=== PATIENT | male | born 1935 | race Caucasian/White ===

== ENCOUNTER 2016-09-15 12:39 | Observation (INO) ==
[2016-09-15] MEDS ORDERED: CARDIZEM IV ONE (13:19)
[2016-09-15] MEDS ORDERED: NS 1,000 ML ONE (13:29)
--- NOTE | 2016-09-15 13:41 | Diag Imaging Result Doc PS360 ---
EXAM: CHEST-PORTABLE HISTORY: cp TECHNIQUE: AP portable upright at 1335 COMMENT: The appearance of the chest has not changed significantly since 04/29/2016. IMPRESSION: No evidence of acute disease. Electronically signed by Yoshi Galvez 09/15/2016 1:39 PM
--- NOTE | 2016-09-15 14:13 | EKG Report ---
Test Performed on : 09/15/2016 12:59:27 PM Test Reason : Chest Pain Blood Pressure : / mmHG Vent. Rate : 159 BPM Atrial Rate : 125 BPM P-R Int : 000 ms QRS Dur : 078 ms QT Int : 270 ms P-R-T Axes : 000 032 068 degrees QTc Int : 439 ms Atrial fibrillation. with rapid ventricular response. with premature ventricular or aberrantly condu cted complexes. ST \T\ T wave abnormality, consider inferolateral ischemia Abnormal ECG When compared with ECG of 06-JUL-2015 09:55, Atrial fibrillation. has replaced Sinus rhythm. Vent. rate has increased BY 102 BPM T wave inversion now evident in Inferior leads Inverted T waves have replaced nonspecific T wave abnormality in Lateral leads Unconfirmed Result
[2016-09-15 14:14] LABS: MANUAL DIFF NEEDED? NO
--- NOTE | 2016-09-15 14:16 | EKG Report ---
Test Performed on : 09/15/2016 1:28:32 PM Test Reason : rhythm change Blood Pressure : / mmHG Vent. Rate : 086 BPM Atrial Rate : 086 BPM P-R Int : 154 ms QRS Dur : 080 ms QT Int : 364 ms P-R-T Axes : 047 027 070 degrees QTc Int : 435 ms Normal sinus rhythm. Nonspecific ST and T wave abnormality Abnormal ECG When compared with ECG of 15-SEP-2016 12:59, (Unconfirmed) Sinus rhythm. has replaced Atrial fibrillation. Vent. rate has decreased BY 73 BPM T wave inversion no longer evident in Inferior leads Unconfirmed Result
[2016-09-15 14:20] LABS: BASO% 0.1 % (0.0-0.8); EOS# 0.02 X1000 (0.0-0.7); EOS% 0.2 % (0.0-10.0); HEMOGLOBIN 14.5 g/dL (14.0-18.0); LYMPH# 0.81 X1000 (1.2-3.4); LYMPH% 9.8 % (20.5-51.1); MCHC 34.5 g/dL (33-37); MCV 89.7 FL (81-99); MONO# 0.58 X1000 (0.11-0.59); MPV 8.6 FL (7.4-10.4); NEUT% 82.9 % (42.2-75.2); PLT 213 X1000 (130-400); RBC 4.68 XMIL (4.7-6.1)
[2016-09-15 14:31] LABS: INR 1.11; PROTIME 11.7 Seconds (9.2-11.7); PTT 28.1 Seconds (22.0-36.0)
[2016-09-15 14:50] LABS: AGAP 10; ALBUMIN 3.6 g/dL (3.5-5.0); ALKALINE PHOSPHATASE 65 U/L (32-122); BUN 8 mg/dL (8-22); CALCIUM 8.9 mg/dL (8.8-10.2); CHLORIDE 90 mmol/L (98-107); CK PROFILE 121 U/L (24-204); COSMO 261; GOT 15 U/L (10-34); GPT 13 U/L (10-44); MAGNESIUM 1.6 mg/dL (1.5-2.7); POTASSIUM 3.5 mmol/L (3.5-5.1); SODIUM 131 mmol/L (136-145); TCO2 31 mmol/L (25-35); TOTAL BILIRUBIN 0.43 mg/dL (0.20-1.00); TOTAL PROTEIN 6.3 g/dL (6.3-8.3)
[2016-09-15] MEDS ORDERED: NS 1,000 ML IV ONE (14:50)
--- NOTE | 2016-09-15 15:46 | PROVIDER DOCUMENTATION ---
This chart was entered by Jean Paul Call Scribe, acting as scribe for Mayra Loya MD. HPI-Chest Pain - General Stated Complaint: CHEST PAIN Time Seen by Provider: 09/15/16 13:10 Source: patient Allergies/Adverse Reactions: Patient Allergies Allergy/AdvReac Type Severity Reaction Status Date / Time codeine Allergy NAUSEA/VOMI Verified 09/15/16 13:41 TING Sulfa (Sulfonamide Allergy RASH Verified 07/06/15 07:30 Antibiotics) Home Medications: Home Medication List Medication Instructions Recorded Confirmed Last Taken Type Aspirin 81 mg PO DAILY 08/08/12 07/06/15 07/06/15 06:30 History Clopidogrel [Plavix] 75 mg PO DAILY 08/08/12 07/06/15 07/05/15 18:00 History Indapamide 2.5 mg PO BID 08/08/12 07/06/15 07/06/15 06:30 History Levothyroxine [Synthroid] 75 microgm PO DAILY 08/08/12 07/06/15 07/06/15 06:30 History Tamsulosin [Flomax] 0.4 mg PO QHS 08/08/12 07/06/15 07/05/15 18:00 History Cyanocobalamin (Vitamin B-12) 5,000 mcg SL DAILY 07/06/15 07/06/15 07/06/15 06: 30 History [Vitamin B-12] Finasteride 5 mg PO QPM 07/06/15 07/06/15 07/05/15 18:00 History Potassium Chloride E.r. [Klor-Con] 20 meq PO DAILY 07/06/15 07/06/15 07/06/15 06 :30 History - History of Present Illness-CP Nature of Presenting Problem: Patient is 81 y/o M that presents with substernal chest pain and palpitations. No shortness of breath, n/v, or dizziness. He was found to have a heartrate at the scene in the 180s and irregular. History of A-fib in which has been controlled for years Location: reports: substernal Chest Pain Radiation: reports: no radiation Quality of Pain: reports: tightness Severity in ED: moderate Onset/Duration: abrupt, this morning Timing: improving Context/Activities at Onset: reports: none Modifying Factors: improves with: nothing Associated Symptoms: denies: abdominal pain, back pain, fever/chills, nausea, shortness of breath, vomiting Nitro Today/Relief: 0.4 mg x 1, provided at home, mild relief Aspirin Treatment Today: 325 mg x 1, provided at home Prior Chest Pain/Cardiac Workup: reports: heart attack Similar Symptoms Previously?: Yes (years ago) Recently Seen Here or By Another Healthcare Provider: No Review of Systems - Adult - REVIEW OF SYSTEMS - ADULT Constitutional: denies: chills, fever Eyes: reports: no symptoms reported Ears, Nose, Mouth & Throat: reports: no symptoms reported Cardiovascular: reports: chest pain, palpitations. denies: orthopnea, syncope Respiratory: denies: cough, shortness of breath, wheezing Gastrointestinal: denies: abdominal pain, nausea, vomiting Genitourinary: reports: no symptoms reported Musculoskeletal: reports: no symptoms reported Integumentary: reports: no symptoms reported Neurological: reports: no symptoms reported Psychiatric: reports: no symptoms reported Endocrine: reports: no symptoms reported Hematologic/Lymphatic: reports: no symptoms reported Allergic/Immunologic: reports: no symptoms reported All Other Systems: Reviewed and Negative Past History - Adult - PAST MEDICAL HISTORY-ADULT Review of Records: reports: Old Records Reviewed, Nursing Assessment Review, Medications Reviewed Cardiovascular: reports: A-Fib, CAD, HTN, hyperlipidemia, [place] Gastrointestinal: reports: GERD Genitourinary: reports: kidney disease, other (bph) Endocrine/Immune: reports: thyroid disorder (hypo) Other Conditions: reports: other cancer (skin) - PRIOR SURGERIES/PROCEDURES Surgical/Procedure History: reports: cardiac stent, hernia repair - IMMUNIZATION STATUS Childhood Immunizations: See Nurse Assessment Flu Vaccine: See Nurse Assessment - FAMILY HISTORY Family History: reviewed, not pertinent - SOCIAL HISTORY Smoking: quit greater than 1 year, cigarettes Alcohol Use Frequency: every day Number of drinks per typical drinking period:: 1 drink Living Situation: family Physical Exam-General - PHYSICAL EXAM-ADULT Initial Vital Signs Reviewed: Yes - CONSTITUTIONAL General Appearance: alert, mild distress - EYES Eyes: PERRL/EOMI, pink conjunctivae - HEAD, EARS, NOSE, MOUTH & THROAT HENMT: normocephalic/atraumatic, moist mucous membranes, normal ENT inspection - NECK Neck: full range of motion, normal inspection - RESPIRATORY Respiratory: lungs clear, normal breath sounds, no respiratory distress, no accessory muscle use - CARDIOVASCULAR Cardiovascular: no edema, irregularly irregular (150s) - GASTROINTESTINAL (ABDOMEN) Abdominal Exam: normal bowel sounds, non tender, soft - MUSCULOSKELETAL Extremity: normal range of motion, normal inspection, no pedal edema - SKIN Integumentary: normal color, warm/dry - NEUROLOGIC Neurologic: club room attendant II-XII nml as tested, no motor/sensory deficits - PSYCHIATRIC Psych/Mental Status: normal mood/affect, normal thought content, normal thought process, oriented x 3 Progress - PLAN OF CARE/RESULTS Progress/Plan/Lab Results: Vital Signs - 8 hr 09/15/16 13:17 09/15/16 13:37 09/15/16 14:10 Temperature 98.2 F Pulse Rate 157 H 86 80 Respiratory Rate 18 17 16 Blood Pressure 112/66 110/63 123/64 O2 Sat by Pulse Oximetry 98 95 99 Laboratory Results - last 24 hr 09/15/16 09/15/16 09/15/16 13:55 13:55 13:55 WBC 8.29 RBC 4.68 L Hgb 14.5 Hct 42.0 MCV 89.7 MCH 31.0 MCHC 34.5 RDW Std Deviation 13.6 Plt Count 213 MPV 8.6 Neut % (Auto) 82.9 H Lymph % (Auto) 9.8 L [place] % (Auto) 7.0 Eos % (Auto) 0.2 Baso % (Auto) 0.1 Neut # (Auto) 6.87 H Lymph # (Auto) 0.81 L [place] # (Auto) 0.58 Eos # (Auto) 0.02 Baso # (Auto) 0.01 PT INR PTT (Actin FS) D-Dimer < 0.10 Sodium 131 L Potassium 3.5 Chloride 90 L Carbon Dioxide 31 Anion Gap 10 BUN 8 Creatinine 1.0 Estimated GFR/1.73 m2 > 60 BUN/Creatinine Ratio 8 Glucose 105 H Calculated Osmolality 261 Calcium 8.9 Magnesium 1.6 Total Bilirubin 0.43 AST 15 ALT 13 Alkaline Phosphatase 65 Creatine Kinase 121 Troponin T [id number] Pept Total Protein 6.3 Albumin 3.6 Globulin 2.7 Albumin/Globulin Ratio 1.3 09/15/16 09/15/16 09/15/16 13:55 13:55 13:55 WBC RBC Hgb Hct MCV MCH MCHC RDW Std Deviation Plt Count MPV Neut % (Auto) Lymph % (Auto) [place] % (Auto) Eos % (Auto) Baso % (Auto) Neut # (Auto) Lymph # (Auto) [place] # (Auto) Eos # (Auto) Baso # (Auto) PT 11.7 INR 1.11 PTT (Actin FS) 28.1 D-Dimer Sodium Potassium Chloride Carbon Dioxide Anion Gap BUN Creatinine Estimated GFR/1.73 m2 BUN/Creatinine Ratio Glucose Calculated Osmolality Calcium Magnesium Total Bilirubin AST ALT Alkaline Phosphatase Creatine Kinase Troponin T < 0.010 [id number] Pept 1309 H Total Protein Albumin Globulin Albumin/Globulin Ratio Orders Category Date Time Status Cardiac Monitoring DIRECTED Care 09/15/16 13:19 Active Saline Loc NOW Care 09/15/16 13:19 Active CHEST-PORTABLE [RAD] Stat Exams 09/15/16 13:19 Completed CBC WITH ELECTRONIC DIFF [HEME] Stat Lab 09/15/16 13:55 Completed CK PROFILE [SP CHEM] Stat Lab 09/15/16 13:55 Completed COMPREHENSIVE METABOLIC PANEL [CHEM] Stat Lab 09/15/16 13:55 Completed D-DIMER [CHEM] Stat Lab 09/15/16 13:55 Completed MAGNESIUM [CHEM] Stat Lab 09/15/16 13:55 Completed PRO B-NATRIURETIC PEPTIDE Stat Lab 09/15/16 13:55 Completed PROTIME WITH INR [COAG] Stat Lab 09/15/16 13:55 Completed PTT [COAG] Stat Lab 09/15/16 13:55 Completed TROPONIN T Stat Lab 09/15/16 13:55 Completed 0.9% Sodium Chloride Inj [Ns] 1,000 ml Med 09/15/16 13:29 Discontinued .ROUTE As Directed 0.9% Sodium Chloride Inj [Ns] 1,000 ml Med 09/15/16 14:50 Active IV 999 mls/hr Diltiazem [Cardizem] Med 09/15/16 13:19 Discontinued 10 mg IV NOW ONE EKG [EKG] Stat Ther 09/15/16 13:19 Draft EKG [EKG] Stat Ther 09/15/16 13:32 Draft patient converted to NSR on his own, Cardizem wasn't given Result Diagrams: 09/15/16 13:55 09/15/16 13:55 - EKG 1 Time of EKG reading by physician:: 12:59 EKG Read and Signed by:: Mayra Loya EKG Interpretation (*Must complete 3 of following elements*): Abnormal Rate: 159 Rhythm: a-fib with RVR QRS: normal ST Wave: non-specific ST changes 2 Time of EKG reading by physician:: 13:28 EKG Read and Signed by:: Mayra Loya EKG Interpretation (*Must complete 3 of following elements*): Abnormal Rate: 86 Rhythm: NSR [place]: normal QRS: normal FL Interval: normal ST Wave: non-specific ST changes - XRAY 1 XRAY Study: Chest Impression: Normal XRAY Interpretation: nad - CONSULTS/PCP/HOSPITALIST Notification #1 *Consult/PCP/Hospitalist*: Time Discussed: 15:21 Consult Disposition: Will see in ED, Admit Departure - Departure Date of Disposition Decision: 09/15/16 Time of Disposition Decision: 15:08 DIAGNOSIS: Paroxysmal a-fib, Chest pain in adult Disposition: ADMITTED INPATIENT 09 Certified Medical Emergency: Emergent Condition: Stable - Critical Care Note This patient required my direct & personal management of CC.: Yes Total Time (mins): 40 Critical Care Statement: This patient required my direct personal management to treat or rule out processes, the absence of which, could potentiallly result in sudden, clinically significant life or limb threatening deterioration. This chart was documented by the indicated scribe, (Jean Paul Call, Scribe) and accurately reflects the services I performed and decisions made by me, Mayra Loya MD, as attested by the provider's signature.
[2016-09-15] MEDS ORDERED: NS 1,000 ML IV SCH (16:56)
--- NOTE | 2016-09-15 18:08 | HISTORY AND PHYSICAL ---
SENIOR ORACLE ADF DEVELOPER: Dr. Balderas. CHIEF COMPLAINT: Chest pain. HISTORY OF PRESENT ILLNESS: Mr. Dinero is an 81-year-old male with a history of coronary artery disease status post myocardial infarction and stenting, hypertension, hyperlipidemia, BPH, who presents to the ER with acute onset of chest pain. He woke up this morning with midsternal chest pain that was nonradiating. He took 3 nitroglycerin 5 minutes apart with a fairly substantial cessation of chest pain but not completely. This pain was nonradiating. It was not associated with shortness of breath, nausea, vomiting, or diaphoresis. Overall the pain lasted around 4 hours. He called his PCP's office who told him to come to the ER. Of note, he does state that it was somewhat similar to his previous chest pain with NV. When he got to the ER he was noted to be in atrial fibrillation with a RVR. Chest x-ray was negative and his lab work was rather benign. He did spontaneously convert to normal sinus rhythm in the ER. He remains in sinus rhythm at this time. He is completely symptom free. We are now going to admit him for observation status. PAST MEDICAL HISTORY: 1. CAD. 2. Hypertension. 3. Hyperlipidemia. 4. BPH. 5. Skin cancer. 6. Paroxysmal atrial fibrillation. 7. GERD. 8. Hypothyroidism. PAST SURGICAL HISTORY: Bilateral inguinal hernia repair and subsequent revision. SOCIAL HISTORY: Patient quit smoking 17 years ago. He drinks 1-2 glasses of wine a night. He is . His has dementia. He is retired from [employer]. FAMILY HISTORY: Noncontributory. REVIEW OF SYSTEMS: Fourteen-point review of systems was obtained and found to be negative with the exception of the HPI. ALLERGIES: Codeine and sulfa. HOME MEDICATIONS: Aspirin 81 mg daily, Plavix 75 mg daily, vitamin B12 5000 mcg sublingual daily, finasteride 5 mg p.o. every evening, indapamide 2.5 mg p.o. b.i.d., Synthroid 75 mcg p.o. daily, Klor-Con 20 mEq p.o. daily, pravastatin 40 mg p.o. at bedtime, Flomax 0.4 mg p.o. at bedtime. REVIEW OF SYSTEMS: A 14 point review of systems obtained and found to be negative with the exception of the HPI. PHYSICAL EXAMINATION: VITAL SIGNS: Blood pressure is 132/66, heart rate 79, respiratory rate 18, O2 saturation 95% on room air, temperature is 98 degrees Fahrenheit. GENERAL: Elderly male, lying in hospital bed. No acute distress. NEUROLOGIC: The patient is awake, alert, and oriented. He follows commands without focal deficits. HEENT: Head is atraumatic and normocephalic. His pupils are equal, round, and reactive to light. Oral mucosa is moist. Trachea is midline. No JVD. CHEST: Clear to auscultation bilaterally. CV: Regular rate and rhythm. S1, S2 is noted. No murmurs. GI: Soft, nondistended, nontender. Bowel sounds positive. EXTREMITIES: No edema, clubbing, or cyanosis. Pulses 1+ bilaterally. DIAGNOSTIC DATA: Chest x-ray is negative for acute process. EKG: Normal sinus rhythm with nonspecific ST changes in the inferior and lateral leads. WBC 8.29, hemoglobin 14.5, hematocrit 42, platelet count 213,000. INR 1.11. D-dimer less than 0.1. Sodium 131, potassium 3.5, chloride 90, CO2 31, anion gap 10, BUN 8, creatinine 1, glucose is 105, calcium 8.9, magnesium 1.6. LFTs within normal limits. ProBNP 1,309. Troponin negative. Albumin 1.3. ASSESSMENT AND PLAN: 1. Chest pain: He has some typical features and it did remind him of his previous chest pain. He is on aspirin and Plavix, as well as statin. We are going to admit him for observation status, monitor telemetry, trend his enzymes, and check an echocardiogram. We will also consult his residential worker. 2. Hyponatremia: Will check urine studies and put him on light IV fluids, saline at 50 mL an hour. 3. Gastroesophageal reflux disease: Continue his home medications. 4. Atrial fibrillation with rapid ventricular response: He has since converted. We will check thyroid function, monitor telemetry, trend his enzymes, check an echocardiogram, and consult Cardiology. He does have an elevated HILTON score with age, history of hypertension. We will defer anticoagulation to cardiology. 5. Hypertension and hyperlipidemia: Chronic and stable. Continue home medications. 6. Deep vein thrombosis prophylaxis will be provided with Lovenox. Further recommendations to follow. Dictated by ADILIA Escalona for Nany Reed MD cc: ADILIA Escalona MD The patient was seen and examined by me. All laboratory studies and imaging was reviewed by me. I agree with the assessment and plan as dictated. MTDD
[2016-09-15 20:33] LABS: URINE CULTURE NEEDED? NO; URINE MICRO REVIEW NEEDED? NO; URINE SOURCE CLEAN CATCH
[2016-09-15 20:38] LABS: BILIRUBIN URINE NEGATIVE (NEGATIVE); BLOOD URINE NEGATIVE (NEGATIVE); COLOR STRAW; GLUCOSE URINE NEGATIVE (NEGATIVE); LEUKOCYTES URINE NEGATIVE (NEGATIVE); NITRITE URINE NEGATIVE (NEGATIVE); PROTEIN URINE NEGATIVE (NEGATIVE); SP GRAVITY URINE 1.006; TURBIDITY URINE CLEAR (CLEAR); UR EPITHELIAL CELLS <10 /HPF (<10); URINE BACTERIA NEGATIVE /HPF; URINE RBC <10 /HPF (<10); URINE WBC <10 /HPF (<10); UROBILINOGEN URINE NORMAL (NORMAL)
[2016-09-15 20:49] LABS: UR CREAT RANDOM 56.2 mg/dL (14-26)
[2016-09-15] MEDS ORDERED: PROSCAR PO SCH (21:00)
[2016-09-15] MEDS ORDERED: PRAVACHOL PO SCH (21:00)
[2016-09-15] MEDS ORDERED: FLOMAX PO SCH (21:00)
[2016-09-15] MEDS ORDERED: LOZOL PO SCH (21:00)
[2016-09-15] MEDS: LOPRESSOR PO SCH (22:13)
[2016-09-16 05:57] LABS: HEMATOCRIT 37.6 % (42.0-52.0); HEMOGLOBIN 12.8 g/dL (14.0-18.0); MCH 31.2 PG (27-31); MCV 91.7 FL (81-99); MPV 8.7 FL (7.4-10.4); RBC 4.1 XMIL (4.7-6.1)
[2016-09-16 06:15] LABS: AGAP 6; BUN 10 mg/dL (8-22); CALCIUM 8.7 mg/dL (8.8-10.2); CHLORIDE 99 mmol/L (98-107); COSMO 272; HDL 55 mg/dL (35-55); LDL 71 mg/dL; MAGNESIUM 1.5 mg/dL (1.5-2.7); POTASSIUM 3.3 mmol/L (3.5-5.1); SODIUM 137 mmol/L (136-145); TCO2 32 mmol/L (25-35); TRIGLYCERIDES 82 mg/dL (39-160); VLDL 16 mg/dL
[2016-09-16] MEDS ORDERED: KLOR-CON PO ONE (06:16)
--- NOTE | 2016-09-16 07:16 | CONSULTATION ---
DATE OF CONSULTATION: 09/15/2016 IMPRESSION: 1. Angina pectoris, likely provoked by atrial fibrillation, with rapid ventricular rate. 2. Episode of atrial fibrillation with rapid ventricular rate, spontaneously converted back to sinus rhythm. Patient relates a remote history of prior atrial fibrillation more than 10 years ago. 3. Atherosclerotic coronary disease, with history of previous coronary angioplasty/stenting of mid left circumflex coronary artery, and chronic occlusion of right coronary artery. Patient last had cardiac catheterization study in June 2015. Patient generally has rare angina. 4. Hypertension. 5. Hyperlipidemia. Patient has been poorly tolerant of Zocor and Lipitor in the past. RECOMMENDATIONS: 1. Monitor on telemetry. 2. Follow up cardiac enzymes. 3. Cautiously try a very low dose beta eric. Patient has had some difficulty with bradycardia with beta blockers in the past. 4. Thromboembolic risk related to paroxysmal atrial fibrillation discussed with the patient. His [id number] score appears to be 2 based on his age and presence of long-standing hypertension. Consideration was given to anticoagulation. He expressed preference to hold off on this right now, and to continue on aspirin and Plavix. HISTORY: This 81-year-old white male with past history of atherosclerotic coronary disease, previous angioplasty/stent to left circumflex coronary artery in the past, chronic total occlusion of the right coronary artery, with well-established collaterals to right coronary artery, hypertension, and hyperlipidemia was admitted through the emergency room after presenting with angina, and was found to be in atrial fibrillation with rapid ventricular rate. He relates he has been doing quite well, and has not had any angina or palpitations. Around 7:30 or 8:00 this morning he started experiencing some bloating sensation in his upper abdomen, and this was soon followed by chest pressure. He was unaware of his tachycardia. He relates that his chest pressure was somewhat intermittent, but he ultimately contacted the nurse in our office, and was instructed to go to the emergency room because of his intermittent chest pressure. He was found to be in atrial fibrillation with rapid ventricular rate. He has spontaneously converted back to sinus rhythm, and relates feeling quite well. He is otherwise without any chest discomfort. He is fairly active. He expresses a great concern regarding being able to get out of the hospital as soon as possible to continue to care for his , who suffers from dementia. PAST MEDICAL HISTORY: 1. Atherosclerotic coronary artery disease, with history of previous angioplasty/stent to left circumflex coronary, and chronic right coronary artery occlusion, with well-established study June 2015. Continued medical management was felt to be appropriate. 2. Hypertension. 3. Hyperlipidemia. 4. Prostate hypertrophy. 5. Remote history of previous atrial fibrillation. 6. Gastroesophageal reflux. 7. Hypothyroidism. PAST SURGICAL HISTORY: 1. Bilateral inguinal hernia repair and subsequent revision. 2. Allergic or intolerant to codeine with sulfa. He also was unable to tolerate Lipitor and Zocor. MEDICATIONS: Prior to admission, as listed. SOCIAL HISTORY: He quit smoking 17 years ago. He drinks 1-2 glasses of wine per night. He is . His has dementia, and he is primary caregiver. FAMILY HISTORY: Negative for premature coronary disease. REVIEW OF SYSTEMS: Pulmonary: Negative. Gastrointestinal: Negative beyond history of present illness, Constitutional: Negative beyond history of present illness. The remainder of review of systems negative beyond history of present illness, with 14 total systems reviewed. PHYSICAL EXAMINATION: General: This is a pleasant, older, white male, in no distress. Vital Signs: As recorded are stable. HEENT: Extraocular movements intact. Mucous membranes are moist. Neck: Supple. No JV distention. There are no carotid bruits. Chest: Clear to auscultation. Cardiac: Reveals a regular rate and rhythm, without appreciable murmur or gallop. Abdomen: Soft, nontender. Bowel sounds are normal. Extremities: Without edema. Neurologic: Reveals him to be alert, fully oriented. Speech is fluent. Moves all 4 extremities equally well. Skin: Warm and dry. Psychiatric: Reveals mood to be appropriate. DIAGNOSTIC DATA: ECG obtained on presentation demonstrates atrial fibrillation, with rapid ventricular rate, occasional premature ventricular aberrantly conducted complexes. ST and T-wave abnormality demonstrated. Consider inferolateral ischemia. Subsequent ECG demonstrates normal sinus rhythm and nonspecific ST and T-wave abnormality. cc: Aamir Balderas MD
[2016-09-16] MEDS: LOPRESSOR PO SCH (08:01)
[2016-09-16] MEDS ORDERED: LOVENOX SUBQ SCH (09:00)
[2016-09-16] MEDS ORDERED: VITAMIN B-12 SL SCH (09:00)
[2016-09-16] MEDS ORDERED: KLOR-CON PO SCH (09:00)
[2016-09-16] MEDS ORDERED: ASPIRIN PO SCH (09:00)
[2016-09-16] MEDS ORDERED: PLAVIX PO SCH (09:00)
[2016-09-16] MEDS ORDERED: FOLIC ACID PO SCH (09:00)
[2016-09-16] MEDS ORDERED: SYNTHROID PO SCH (09:00)
--- NOTE | 2016-09-16 10:25 | ECHO REPORT ---
ORDER DATE: 09/15/2016 ECHOCARDIOGRAPHIC MEASUREMENTS: 1. Interventricular septum 1.4, left ventricular posterior wall 1, diastolic diameter 4.5, left atrium 3.7, aorta 3.7. 2. Normal left ventricular cavity size with an estimated ejection fraction of 65%. 3. Mitral valve was normal. Tricuspid valve was normal. Aortic valve leaflets were trileaflet. 4. There is mild mitral regurgitation. 5. Mild tricuspid regurgitation. 6. Trivial pulmonary regurgitation. 7. Peak velocity across the tricuspid valve was 2.6 m/sec. Pulmonary artery systolic pressure of 36 mmHg. 8. There is no aortic stenosis or regurgitation. 9. There is no pericardial effusion or obvious intracardiac mass or thrombus seen. cc: MD Art Atkinson CRNP
[2016-09-16 11:11] VITALS: BP 152/81
--- NOTE | 2016-09-17 09:26 | DISCHARGE SUMMARY ---
ADMISSION DATE: 09/15/2016 DISCHARGE DATE: 09/16/2016 FINAL DISCHARGE DIAGNOSES: 1. Paroxysmal atrial fibrillation. 2. Chest pain. 3. Coronary artery disease. 4. Hypertension. 5. Dyslipidemia. CONSULTATIONS REQUESTED DURING THIS HOSPITAL STAY: Cardiology consultation with Dr. Balderas. HOSPITAL COURSE: Mr. Dinero is an 81-year-old male with a history of coronary artery disease, hypertension, and dyslipidemia, who presented to the ER with a chief complaint of chest pain. Upon arrival to the ER the patient was noted to be in atrial fibrillation with rapid ventricular response. In light of this finding, the patient was admitted to the hospitalist service for further treatment and evaluation. Serial cardiac enzymes were obtained and cardiology was consulted. The enzymes came back negative. The patient spontaneously converted to normal sinus rhythm. The patient was started on Lopressor for rate control and has been able to tolerate it without any difficulty. The patient continued to improve clinically and was ultimately cleared for discharge home on September 16, 2016. DISCHARGE MEDICATIONS: 1. Folic acid 1 mg p.o. daily. 2. Metoprolol 12.5 mg p.o. twice a day. 3. Flomax 0.4 mg p.o. at bedtime. 4. Synthroid 75 mcg p.o. daily. 5. Indapamide 2.5 mg p.o. twice a day. 6. Plavix 75 mg oral daily. 7. Aspirin 81 mg p.o. daily. 8. Finasteride 5 mg p.o. every evening. 9. Klor-Con 20 mEq oral every evening. 10. Vitamin B12 32417 mcg sublingual daily. 11. Pravastatin 40 mg p.o. at bedtime. DISCHARGE DIET: Low-sodium, low-cholesterol diet. ACTIVITY: As tolerated. FOLLOWUP INSTRUCTIONS: The patient will need to follow up with Dr. Balderas in 2 weeks. cc: Nany Reed MD
== END 2016-09-16 12:17 | disposition home or self-care (01) ==
LOC: ED 12:39 → INTOOBSV 16:12 → 4N 16:12
PROVIDERS: ATTEND Internal Medicine